=== PATIENT | male | born 1965 | race Caucasian/White ===

== ENCOUNTER 2018-01-16 18:57 | Emergency (ER) | payer MEDICAID ==
[~2018-01-16] VITALS: Ht 177.8 cm; Wt 227.3 kg
[2018-01-16 19:13] VITALS: Ht 177.8 cm; Wt 227.3 kg
[2018-01-16] MEDS ORDERED: ACETAMINOPHEN325 MG PO (19:14)
[2018-01-16] MEDS ORDERED: ATROPINE SULFA3.5 GM EACH EYE (19:15)
[2018-01-16] MEDS ORDERED: APIDRA SOL100 UNIT/1 SQ (19:15)
[2018-01-16] MEDS ORDERED: AMBIEN10 MG PO (19:15)
[2018-01-16] MEDS ORDERED: DULCOLAX10 MG/SUPP RC (19:16)
[2018-01-16] MEDS ORDERED: NORMODYNE / TR100 MG PO (19:16)
[2018-01-16] MEDS ORDERED: CATAPRES0.1 MG PO (19:16)
[2018-01-16] MEDS ORDERED: NEURONTIN 300300 MG PO (19:16)
[2018-01-16] MEDS ORDERED: COLACE100 MG PO (19:16)
[2018-01-16] MEDS ORDERED: PRINIVIL20 MG PO (19:18)
[2018-01-16] MEDS ORDERED: [UNRECOGNIZED DRUG - OTHER] SC (19:18)
[2018-01-16] MEDS ORDERED: ATIVAN0.5 MG PO (19:19)
[2018-01-16] MEDS ORDERED: LYRICA150 MG PO (19:19)
[2018-01-16] MEDS ORDERED: KADIAN30 MG (19:20)
[2018-01-16] MEDS ORDERED: OXYCONTIN15 MG (19:20)
[2018-01-16] MEDS ORDERED: MS CONTIN60 MG PO (19:20)
[2018-01-16] MEDS ORDERED: IBUPROFEN800 MG PO (20:43)
[2018-01-16] MEDS ORDERED: CYCLOBENZAPRINE10 MG PO (20:43)
[2018-01-16 21:35] VITALS: BP 189/95
== END 2018-01-16 21:36 | disposition home or self-care (01) ==
LOC: D.ER 18:57
DX: M79.604 Pain in right leg (principal); M25.571 Pain in right ankle and joints of right foot; M25.562 Pain in left knee; W18.30XA Fall on same level, unspecified, initial encounter; Y93.89 Activity, other specified; Y92.019 Unspecified place in single-family (private) house as the place of occurrence of the external cause; G40.909 Epilepsy, unspecified, not intractable, without status epilepticus; E11.9 Type 2 diabetes mellitus without complications; I11.0 Hypertensive heart disease with heart failure; I50.9 Heart failure, unspecified; J44.9 Chronic obstructive pulmonary disease, unspecified